=== PATIENT | female | born 1990 | race Caucasian/White ===

== ENCOUNTER 2019-03-26 16:20 | Inpatient (IN) | payer BC ==
[2019-03-26] MEDS ORDERED: Ondansetron PF 4 MG/2 ML Vial IVP PRN ×2 (16:28→23:51)
[2019-03-26] MEDS ORDERED: Docusate 100 MG CAP PO PRN (16:28)
[2019-03-26] MEDS ORDERED: HYDROcodone/Acetaminophen 5/325 mg Tablet PO PRN ×2 (16:28)
[2019-03-26] MEDS ORDERED: Promethazine HCl 25 MG/ML VIAL IM PRN ×2 (16:28→23:51)
[2019-03-26] MEDS ORDERED: Ibuprofen 800 MG TAB PO PRN (16:28)
[2019-03-26] MEDS ORDERED: NS / Oxytocin 40 units/1000ml 1,000 ML IV PRN (16:28)
[2019-03-26] MEDS ORDERED: Lidocaine 1% (PF) 30 ML VIAL SC PRN (16:28)
[2019-03-26 17:38] LABS: Hemoglobin 14.1 g/dL (12.0-16.0); Mean Corpuscular HGB CONC 34.2 g/dL (32.0-36.0); Mean Corpuscular Hemoglobin 33.8 pg (27.0-31.0); Mean Corpuscular Volume 98.9 fL (78.0-98.0); Mean Platelet Volume 7.8 fL (7.4-10.4); Platelet Count 173 thou/uL (130-400); RBC Distribution Width 12.1 % (11.5-14.5); Red Blood Cell (RBC) Count 4.18 mill/uL (4.20-5.40); White Blood Cell (WBC) Count 13.8 thou/uL (4.8-10.8)
[2019-03-26 17:43] VITALS: BMI 34.1
[2019-03-26] MEDS: Lactated Ringer's 1,000 ML IV SCH ×2 (17:43→23:59)
[2019-03-26 18:16] LABS: HBSAg Index 0.35 S/CO (0-0.99); Hep B Surf Ag Non-Reactive S/CO (NonReactive); Syphilis Antibody Nonreactive (Nonreactive); Syphilis Antibody Index 0.03 S/CO (<1.00 Non-Reactive)
[2019-03-26] MEDS: NS w/ Oxytocin 10 units 500 ML IV SCH (20:38)
[2019-03-26] MEDS ORDERED: Fentanyl 4 mcg/Bup 0.1% Cadd 0 ML ONE (22:11)
[2019-03-26] MEDS ORDERED: Fentanyl 4 mcg/Bup 0.1% Cadd 100 ML ONE (22:13)
[2019-03-26] MEDS ORDERED: Lidocaine 1.5%/Epinephrine 1:200,000 5 ML AMPUL IJ ONE (22:14)
[2019-03-26] MEDS ORDERED: Butorphanol Tartrate 1 MG/ML VIAL ONE (22:51)
[2019-03-26] MEDS ORDERED: Communication Order-Pharmacy FS SCH (23:45)
[2019-03-26] MEDS ORDERED: Fentanyl 4 mcg/Bupivacaine 0.1% Cassette 100 ML EPIDURAL SCH (23:45)
[2019-03-26] MEDS ORDERED: ePHEDrine/0.9% NaCl/PF SYRINGE 50 mg/10 ml SLOW IVP PRN (23:51)
[2019-03-26] MEDS ORDERED: Naloxone HCl 0.4 mg/ml Vial IVP PRN ×2 (23:51)
[2019-03-26] MEDS ORDERED: Lactated Ringer's 500 ML IV PRN (23:51)
[2019-03-26] MEDS ORDERED: Hydrocerin (Eucerin) Cream 120 gm Jar TOP PRN (23:51)
[2019-03-26] MEDS ORDERED: diphenhydrAMINE 50 MG/ML VIAL IVP PRN (23:51)
[2019-03-27] MEDS ORDERED: Butorphanol Tartrate 1 MG/ML VIAL SLOW IVP SCH (02:00)
[2019-03-27] MEDS ORDERED: Fentanyl 4 mcg/Bup 0.1% Cadd 100 ML ONE (04:41)
[2019-03-27] MEDS ORDERED: Milk Of Magnesia 30 ML UDCUP PO PRN (07:36)
[2019-03-27] MEDS ORDERED: HYDROcodone/Acetaminophen 5/325 mg Tablet PO PRN (07:36)
[2019-03-27] MEDS ORDERED: Adacel (T-DAP) 0.5 ML SYRINGE IM ONE (07:36)
[2019-03-27] MEDS ORDERED: Bisacodyl 10 MG SUPP PR PRN (07:36)
[2019-03-27] MEDS ORDERED: NS / Oxytocin 40 units/1000ml 1,000 ML IV SCH (07:45)
[2019-03-27] MEDS ORDERED: Bupivacaine/Epinephrine 0.25% 30 ML VIAL ONE (11:11)
[2019-03-27] MEDS: Ferrous Sulfate 325 MG TAB PO SCH ×2 (13:51→16:29)
[2019-03-27] MEDS: Lactated Ringer's 1,000 ML IV SCH ×3 (16:26→21:52)
[2019-03-27] MEDS: Docusate Calcium (SURFAK) 240 MG CAP PO SCH ×2 (16:26→21:53)
[2019-03-27] MEDS: NS w/ Oxytocin 10 units 500 ML IV SCH (18:12)
[2019-03-27] MEDS: Acetaminophen 325 MG TAB PO PRN (21:52)
[2019-03-28] MEDS: Acetaminophen 325 MG TAB PO PRN ×2 (06:04→19:13)
[2019-03-28] MEDS: Lactated Ringer's 1,000 ML IV SCH ×3 (12:14→19:47)
[2019-03-28] MEDS: Ferrous Sulfate 325 MG TAB PO SCH (12:14)
--- NOTE | 2019-03-28 18:48 | DN ---
DATE OF PROCEDURE: 03/27/2019 PREPROCEDURE DIAGNOSES: 1. A 28-year-old, G1, at 39 weeks plus, presented in active labor. 2. Rupture of membranes for clear fluid. 3. GBS negative. 4. Anemia of . POSTOPERATIVE DIAGNOSIS: 1. A 28-year-old, G1, at 39 weeks plus, presented in active labor. 2. Rupture of membranes for clear fluid. 3. GBS negative. 4. Anemia of . 5. Live born male weighing 8 pounds 11 ounces with Apgars of 8 and 9 at 1 and 5 minutes respectively. 6. Second-degree midline laceration and a first-degree periurethral laceration repaired. PROCEDURE PERFORMED: Spontaneous vaginal delivery. ANESTHESIA: Epidural. ESTIMATED BLOOD LOSS: 450 mL. QUANTITATIVE BLOOD LOSS: 465 mL. CLINICAL HISTORY: This patient is a 28-year-old female, G1 at 39 weeks and 3 days, who presented to Labor and Delivery in active labor. The patient was noted to be 3 cm and 60% to 70% effaced in the office. Earlier in the day, when she presented, she was 4 cm, 70% effaced, and -2 station. She was placed on the monitor and then had a reactive tracing with regular contractions every 5 to 8 minutes, and amniotomy was performed with clear fluid and the patient progressed. She did request an epidural for maternal analgesia, which gave her initial comfort measures. However, it was necessary to replace later as she continued to progress. The patient, after having her 2nd epidural placed, had a lower baseline with moderate variability and positive scalp stimulation. The Pitocin had been turned off and on several times by the nursing staff. After the MD came in to evaluate the patient, it was noted that she was very stretchy 7 cm with an asynclitic presentation. The head was guided into the correct position for the contractions to put pressure on the cervix, and an IUPC and scalp electrode were placed. The Pitocin was turned back on and the patient continued to progress to complete cervical dilation and +2 station and then began to push. DESCRIPTION OF PROCEDURE: With good maternal effort, the vertex was brought to the perineum in the GLORIA position. She delivered the head. There was a nuchal cord that was reduced deeply at the perineum. The anterior shoulder followed by the posterior shoulder followed by the remainder of the infant's body was delivered. The cord was doubly clamped and cut, and the vigorous infant was placed on the maternal abdomen for continued stimulation and care. The cord blood was obtained, and then the placenta was delivered spontaneously intact with a three-vessel cord. The placenta was explored and noted to be completely there. The placenta was discarded, and the exploration of the cervix, vagina, and perineum noted a midline second-degree tear and a shallow first-degree periurethral laceration. Both were repaired with excellent hemostasis. The patient was able to recover on Labor and Delivery in satisfactory condition with her infant. Again, the was a live born male, weighing 8 pounds 11 ounces with Apgars of 8 and 9 at 1 and 5 minutes respectively. There were no other issues surrounding this delivery. All needle, sponge, lap, and instrument counts were correct x2 at the end of the procedure. Job ID: [id number]
[2019-03-28] MEDS: Docusate Calcium (SURFAK) 240 MG CAP PO SCH ×2 (19:12→19:13)
[2019-03-28] MEDS: NS w/ Oxytocin 10 units 500 ML IV SCH (19:46)
[2019-03-29] MEDS: Docusate Calcium (SURFAK) 240 MG CAP PO SCH (10:04)
[2019-03-29] MEDS: Acetaminophen 325 MG TAB PO PRN (10:04)
[2019-03-29] MEDS: Ferrous Sulfate 325 MG TAB PO SCH (10:06)
[2019-03-29 16:36] VITALS: BP 118/70; TEMP 98.5
== END 2019-03-29 15:00 | disposition home or self-care (01) | DRG 807 ==
LOC: L&D 16:20 → 3SE 03-27 14:26
PROVIDERS: ADMIT Obstetrics & Gynecology; ATTEND Obstetrics & Gynecology
PROC: 10E0XZZ Delivery of Products of Conception, External Approach (ICD-10-PCS; principal; 2019-03-26)
PROC: 0KQM0ZZ Repair Perineum Muscle, Open Approach (ICD-10-PCS; 2019-03-26)
PROC: 10907ZC Drainage of Amniotic Fluid, Therapeutic from Products of Conception, Via Natural or Artificial Opening (ICD-10-PCS; 2019-03-26)
PROC: 0UQMXZZ Repair Vulva, External Approach (ICD-10-PCS; 2019-03-26)
DX: O99.02 Anemia complicating childbirth (principal); Z37.0 Single live birth; D64.9 Anemia, unspecified; Z3A.39 39 weeks gestation of pregnancy; O70.1 Second degree perineal laceration during delivery; O69.81X0 Labor and delivery complicated by cord around neck, without compression, not applicable or unspecified
CPT/HCPCS: 36415; 51702; 85027; 86780; 86850; 86900; 86901; 87340; J0595; J2405; J2590; J3490

== ENCOUNTER 2020-01-24 16:35 | Emergency (ER) | payer BC ==
[~2020-01-24 16:35] MED LIST: Iopamidol-370 76% 500 ML 1 ML ONE
[2020-01-24] MEDS ORDERED: Ondansetron ODT 4 MG TAB ONE (17:43)
[2020-01-24] MEDS ORDERED: Morphine 4 MG/ML VIAL ONE ×2 (17:43→21:07)
[2020-01-24 17:56] LABS: #Basophils 0.1 thou/uL (0.0-0.2); #Lymphocytes 0.4 thou/uL (1.20-3.40); #Monocytes 0.1 thou/uL (0.11-0.59); #Neutrophils 10.8 thou/uL (1.40-6.50); %Basophils 0.5 % (0.0-1.0); %Eosinophils 0.1 % (0.0-10.0); %Lymphocytes 3.3 % (21.0-51.0); %Monocytes 1.2 % (0.0-10.0); %Neutrophils 94.9 % (42.0-75.0); Hemoglobin 15.6 g/dL (12.0-16.0); Mean Corpuscular HGB CONC 34.1 g/dL (32.0-36.0); Mean Corpuscular Hemoglobin 31.6 pg (27.0-31.0); Mean Corpuscular Volume 92.5 fL (78.0-98.0); Mean Platelet Volume 7.9 fL (7.4-10.4); Platelet Count 245 thou/uL (130-400); RBC Distribution Width 11.2 % (11.5-14.5); Red Blood Cell (RBC) Count 4.95 mill/uL (4.20-5.40); White Blood Cell (WBC) Count 11.4 thou/uL (4.8-10.8)
[2020-01-24 18:16] LABS: ALT (SGPT) 16 U/L (8-55); AST (SGOT) 14 U/L (5-34); Albumin 4.3 g/dL (3.5-5.0); Alkaline Phosphatase 74 U/L (40-110); Anion Gap 12 mmol/L (10-20); BUN (Urea Nitrogen) 9 mg/dL (7.0-18.7); Bilirubin, Total 0.3 mg/dL (0.2-1.2); Calc. Creatinine Clearance 0 mL/min (70-130); Carbon Dioxide 23 mmol/L (22-29); Chloride 104 mmol/L (98-107); Estimated GFR-MDRD 78; Globulin 3.2 g/dL (2.4-3.5); Glucose 138 mg/dL (70-105); Protein, Total 7.5 g/dL (6.0-8.3); Sodium 135 mmol/L (136-145)
--- NOTE | 2020-01-24 18:22 | RAD ---
LUMBAR SPINE RADIOGRAPHS TWO VIEWS: 01/24/20 PROVIDED CLINICAL HISTORY: Back pain. Five nonribbearing lumbar type vertebral bodies are present. Lumbar alignment appears normal. Vertebr al body heights appear preserved. Pedicles appear intact. Possible right renal calculi. IMPRESSION: 1. No evidence for an acute osseous abnormality. 2. Possible right nephrolithiasis. POS: EVELIA
[2020-01-24 18:27] LABS: Bilirubin Negative (Negative); Blood, Urine Negative (Negative); Clarity Clear (Clear); Glucose, Urine (Dipstick) Normal (Negative); Leukocyte 75 Leu/uL (Negative); Nitrite Negative (Negative); Pregnancy Test - Urine (BHCG) Negative (Negative); Pregu Control Background? CLEAR/WHITE (CLR/WHITE); Pregu Control Bar Appear? YES (CONTROL BAR); Protein, Urine (Dipstick) 10 mg/dL (Neg-Trace); RBC/HPF 0-3 HPF (0-3); Specific Gravity 1.018 (1.002-1.036); Urobilinogen Normal mg/dL (Less than 2); WBC/HPF 0-3 HPF (0-3)
[2020-01-24 18:35] LABS: Bacteria/HPF 1+ HPF (None Seen)
--- NOTE | 2020-01-24 19:35 | CT ---
CT OF THE ABDOMEN AND PELVIS WITH IV CONTRAST INDICATION: Abdominal and back pain COMPARISON: None FINDINGS: ABDOMEN: Lung bases: Clear Liver: No focal lesion. Gallbladder: Normal appearing. Pancreas: Normal. Adrenal glands: Normal. Spleen: Normal. Kidneys and ureters: Normal. No hydronephrosis. Vasculature: Normal. Lymph nodes:No lymphadenopathy. Free fluid in abdomen:No free fluid is evident. PELVIS: Small and large bowel: There is a mild amount retained stool within colon. Small bowel is of normal c aliber Appendix:Normal Bladder: Normal. Rectal and perirectal soft tissues:Normal. Reproductive structures: There is a 3.9 cm cystic abnormality in the region of the right adnexa. Free fluid in pelvis: Mild free fluid Lymphadenopathy pelvis: No lymphadenopathy is evident. Osseous structures: No acute osseous abnormality. No destructive osteolytic or osteoblastic lesion i s identified. Soft tissues:Fat-containing umbilicus hernia IMPRESSION: 1. 3.9 cm right adnexal cystic abnormalities suspicious for a large follicular cyst. Follow-up pelvic ultrasound in 6-8 weeks is recommended document resolution. 2. Mild amount retained stool within colon. 3. Mild free fluid in the pelvis may be physiologic in nature. 4. Small fat-containing umbilicus hernia.
[2020-01-24] MEDS ORDERED: Ketorolac Tromethamine 30 MG/ML VIAL ONE (19:55)
[2020-01-24] MEDS ORDERED: Diazepam 10 MG/2 ML SYRINGE ONE (19:56)
[2020-01-26 19:32] LABS: Chlamydia by PCR Not Detected (NotDetected); GC by PCR Not Detected (NotDetected)
== END 2020-01-24 22:18 | disposition home or self-care (01) ==
LOC: ERS 16:35
DX: M54.42 Lumbago with sciatica, left side (principal); M54.41 Lumbago with sciatica, right side
CPT/HCPCS: 36415; 72100; 74177; 80053; 81003; 81015; 81025; 85025; 87480; 87491; 87510; 87591; 87660; 96374; 96375; 96376; J1885; J2270; J3360; Q0162; Q9967